=== PATIENT | male | born 1980 | race Caucasian/White ===

== ENCOUNTER 2024-12-27 11:45 | Outpatient (CLI) | payer OTHER, SELFPAY ==
[2024-12-27 15:13] LABS: Hematocrit 45.7 % (42.0-52.0); Hemoglobin 16.0 g/dL (14.1-18.0); Immature Granulocytes % 0.3 %; Mean Corpuscular HGB Conc 35.0 g/dL (31.8-35.4); Mean Corpuscular Hemoglobin 31.6 pg (27.0-31.2); Mean Corpuscular Volume 90.3 fl (80-94); Nucleated Red Blood Cells % 0 %; Platelet Count 346 K/mm3 (142-424); Red Blood Count 5.06 M/mm3 (4.60-6.20); Red Cell Distribution Width-SD 40.0 fL; White Blood Count 8.7 K/mm3 (4.8-10.8)
[2024-12-27 16:10] LABS: Albumin Level 4.1 g/dl (3.5-5.0); Chloride 103 mmol/L (98-107); Sodium 136 mmol/L (136-145)
[2024-12-27 16:11] LABS: Potassium 4.3 mmoL/L (3.5-5.1)
[2024-12-27 16:13] LABS: Alanine Aminotransferase 56 U/L (12-78); Albumin/Globulin Ratio 1.1 (1.1-1.8); Alkaline Phosphatase 72 U/L (38-126); Anion Gap 13.3 mEq/L (5-15); Aspartate Amino Transferase 43 U/L (17-59); Bilirubin,Total 0.4 mg/dl (0.2-1.3); Blood Urea Nitrogen 15 mg/dl (9-20); Carbon Dioxide 24 mmol/L (22.0-30.0); Cholesterol 217 mg/dl (140-200); Creatinine,Serum 0.80 mg/dl (0.66-1.25); Estimated Glomerular Filt Rate 105 ml/min (>60); GFR (African American) 127 ML/MIN (>60); Globulin 3.6 g/dL (1.3-3.2); Total Protein,Serum 7.7 g/dl (6.3-8.2)
[2024-12-27 16:14] LABS: Calcium 9.9 mg/dl (8.4-10.2); Glucose 86 mg/dl (74-100); HDL Cholesterol 32 mg/dl (40-60)
[2024-12-27 16:33] LABS: Triglycerides 582 mg/dl (30-150)
[2024-12-27 16:59] LABS: Hepatitis C Ab Qual. W/ RFX NEGATIVE (Negative)
[2024-12-27 17:29] LABS: Hemoglobin A1C 5.0 % (4.0-6.0)
--- OUTSIDE RECORDS SUMMARY | 2024-12-28 10:25 | XMS_ITS | Clinical Summary ---
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 Not on file 01/2023 Does Anyone Keep You from Co ntacting Others or Doint Things Outside the Home? Not on file 03/02/2023 Physical Sign of Abuse Present Not on file 1 Housing Stability Answer Date Recorded Current Living Arrangements Not on file 01/2023 Potentially Unsafe Housing Conditions Not on grzegorz e 03/02/2023 Family and Community Support Answer Lincoln e Recorded Help with Day-to-Day Activities Not on file 03/02/2023 Lonely or Isolated Not on file 03/02/2023 Employment Answer Date Recorded Do you want help finding or keeping work or a kimberly b? Not on file 03/02/2023 Disabilities Answer Date Recorded Concentrating, Remembering, or Making Decisions Difficulty Not on file 03/02/2023 Doing Errands Independently Difficulty Not on fi le 03/02/2023 Education Answer Date Recorded Help with school or training? Not on file Preferred Language Not on file 03/02/2023 Sex and Gender Information Value Date Recorded Sex Assigned at Not on file Legal Sex Male 12:19 PM EDT Gender Identity Not on file Sexual Orientation Not on file Plan of Treatment Health Maintenance Due Date Last Done Comments ANNUAL PHYSICAL 1980 HEPATITIS C SCREENING 1980 TDAP/TD VACCINES (1 - Tdap) 10/30/1999 COVID-19 Vaccine (2023-2 5 season) 2024 INFLUENZA VACCINE 02/22/2025 Pneumococcal Vaccine 0-49 Aged Out No longer eligible based on patient's age to complete this topic
== END 2024-12-27 23:59 | disposition home or self-care (01) ==
PROVIDERS: PCP Internal Medicine; Visit Provider Internal Medicine
DX: Z11.4 Encounter for screening for human immunodeficiency virus [HIV] (principal); Z13.1 Encounter for screening for diabetes mellitus; Z13.220 Encounter for screening for lipoid disorders; R53.83 Other fatigue; Z11.59 Encounter for screening for other viral diseases
CPT/HCPCS: 80053; 80061; 83036; 85025; 86803; 87389